=== PATIENT | female | born 1960 | race Caucasian/White ===

== ENCOUNTER 2020-10-09 10:41 | Inpatient (IN) | payer MEDICAID, SELFPAY ==
[~2020-10-09] VITALS: Ht 154.9 cm; Wt 90.7 kg
[2020-10-09 10:45] VITALS: BP_SYST 113
--- NOTE | 2020-10-09 10:49 | NUR ---
Patient to ER bed 2 to gown for evaluation. Side rails up.
--- NOTE | 2020-10-09 10:50 | NUR ---
Patient presented to ER C/O GI bleed. Patient BIB BLS to ER, afebrile, skin pink and warm, denies pain, denies N/V/D, cough, respirations equal bilat. Per EMS patient was sent from [facility] with with HGB 8.2 and blood in stool x2 days.
--- NOTE | 2020-10-09 10:51 | NUR ---
RIGHT AXILLA PICC, TRIPLE LUMEN
--- NOTE | 2020-10-09 11:01 | NUR ---
ER Dr. Montez at bedside examining patient.
--- NOTE | 2020-10-09 11:40 | NUR ---
Urine specimen collected and analyzed in ER. Results given to ER .
[2020-10-09 11:45] LABS: EOSINOPHILS # (AUTO) 0.4 K/uL (0.0-0.4); MEAN CORPUSCULAR HEMOGLOBIN 33 pg (27-31); MEAN CORPUSCULAR HGB CONC 34 % (32-36); WHITE BLOOD COUNT (AUTO) 9.1 K/uL (4.8-10.8)
[2020-10-09 11:48] LABS: BASOPHILS # (AUTO) 0.1 K/uL (0.0-0.2); BASOPHILS % (AUTO) 1.6 % (0.0-2.0); EOSINOPHILS % (AUTO) 4.2 % (0.0-4.0); LYMPHOCYTES # (AUTO) 1.2 K/uL (1.0-5.5); LYMPHOCYTES % (AUTO) 13.2 % (20.5-51.5); MEAN CORPUSCULAR VOLUME 96 fL (79.0-98.0); MONOCYTES % (AUTO) 11.2 % (1.7-9.3); NEUTROPHILS # (AUTO) 6.4 K/uL (1.8-7.7); NEUTROPHILS % (AUTO) 69.8 % (40.0-70.0); PLATELET COUNT (AUTO) 74 K/uL (130-430); RED CELL DISTRIBUTION WIDTH 20.2 % (9.0-15.0)
[2020-10-09 11:52] LABS: HEMOGLOBIN 7.9 g/dL (12.0-16.0)
[2020-10-09 11:59] LABS: INR 1.4 (0.8-1.2); PROTHROMBIN TIME 13.8 SECS (9.5-12.5)
[2020-10-09 12:06] LABS: ALBUMIN 1.9 g/dL (3.4-4.8); CALCIUM 8.7 mg/dL (8.4-11.0); CREATININE 0.95 mg/dL (0.55-1.30); TOTAL BILIRUBIN 8.8 mg/dL (0.0-1.0)
[2020-10-09 12:12] LABS: POTASSIUM 3.5 mmol/L (3.5-5.1)
--- NOTE | 2020-10-09 12:25 | NUR ---
Patient repositioned in [facility], PT A&Ox4
[2020-10-09 12:32] LABS: BILIRUBIN,URINE 1+ (NEGATIVE); CLARITY/URINE SL CLOUDY (CLEAR); COLOR,URINE ORANGE (YELLOW); GLUCOSE,URINE NEGATIVE (NEGATIVE); KETONES,URINE NEGATIVE (NEGATIVE); LEUKOCYTE ESTERASE ,URINE NEGATIVE (NEGATIVE); NITRITE, URINE POSITIVE (NEGATIVE); PROTEIN URINE NEGATIVE (NEGATIVE); UROBILINOGEN,URINE 0.2 (0.2-1.0)
[2020-10-09 12:46] LABS: BLOOD, URINE TRACE (NEGATIVE)
[2020-10-09 12:58] LABS: BACTERIA,URINE MODERATE /HPF (None Seen); WBC,URINE 0-3 /HPF (0-3)
[2020-10-09] MEDS ORDERED: LEVOFLOXACIN 500 MG/D5W 100 ML IV ONE (13:00)
[2020-10-09] MEDS: NACL 0.9% 1,000 ML IV SCH (13:30)
--- NOTE | 2020-10-09 13:40 | NUR ---
Orders received from Dr. Osborn. Made Pt aware of admission.
[2020-10-09] MEDS ORDERED: LORA10CA PO (13:46)
[2020-10-09] MEDS ORDERED: FOLI-43 PO (13:46)
[2020-10-09] MEDS ORDERED: FURO-149 PO (13:46)
[2020-10-09] MEDS ORDERED: THIA50TA10 PO (13:46)
[2020-10-09] MEDS ORDERED: LIP20 PO (13:46)
[2020-10-09] MEDS ORDERED: METO5TAB7 PO (13:46)
[2020-10-09] MEDS ORDERED: PANT20TA2 PO (13:46)
[2020-10-09] MEDS ORDERED: ASA81 PO (13:46)
--- NOTE | 2020-10-09 15:10 | NUR ---
Patient sitting up in [facility], repositioned. Patient A&Ox4.
--- NOTE | 2020-10-09 16:18 | NUR ---
aPatient will be admitted to care DR QUEEN. Admitted to TELE unit. Will go to room 116A. Belongings list completed. Complete and up to date summary report printed. SBAR report to be given at bedside with opportunity for questions.
--- NOTE | 2020-10-09 16:45 | NUR ---
CONSULTATION PAGED REASON FOR CONSULTATION:GI BLEED WAS CONSULT CALLED?Y PERSON WHO WAS NOTIFIED:MENDY CONSULTING PHYSICIAN:EFREN SOLER ( STOCKBROKER) BEAM WARPER SPECIALTY:GI BEAM WARPER PHONE NUMBER:[phone] ORDERING PHYSICIAN:MACI JEFF
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
[2020-10-09 17:00] VITALS: BP_SYST 117
--- NOTE | 2020-10-09 17:30 | NUR ---
REPORT Report obtained from ER nurse Mlaly. Hbd 8.2 Dx GI bleed, diverticulitis, GERD, Alcoholic cirrhosis, Diabetes. Lab called and stated Blood type is AB+ bu only have O- blood in house. Skin jaundice. PICC to R axilla. COVID neg 10/09.
[2020-10-09] MEDS: PIPERACILLIN/TAZO 3.375/DEX-IS 50 ML IV SCH (18:00)
[2020-10-09 19:00] VITALS: BP_SYST 123
[2020-10-10] MEDS: NACL 0.9% 1,000 ML IV SCH ×3 (00:38→18:54)
[2020-10-10 04:00] VITALS: BP_SYST 126
[2020-10-10] MEDS: PIPERACILLIN/TAZO 3.375/DEX-IS 50 ML IV SCH ×5 (06:00→23:35)
[2020-10-10 06:39] LABS: BASOPHILS # (AUTO) 0.1 K/uL (0.0-0.2); BASOPHILS % (AUTO) 1.3 % (0.0-2.0); EOSINOPHILS # (AUTO) 0.4 K/uL (0.0-0.4); EOSINOPHILS % (AUTO) 4.4 % (0.0-4.0); HEMATOCRIT 24.9 % (36-48); HEMOGLOBIN 8.5 g/dL (12.0-16.0); LYMPHOCYTES # (AUTO) 1.2 K/uL (1.0-5.5); LYMPHOCYTES % (AUTO) 14.8 % (20.5-51.5); MEAN CORPUSCULAR HEMOGLOBIN 32 pg (27-31); MEAN CORPUSCULAR HGB CONC 34 % (32-36); MEAN CORPUSCULAR VOLUME 94 fL (79.0-98.0); MONOCYTES # (AUTO) 0.8 K/uL (0.0-1.0); MONOCYTES % (AUTO) 10.2 % (1.7-9.3); NEUTROPHILS # (AUTO) 5.5 K/uL (1.8-7.7); NEUTROPHILS % (AUTO) 69.3 % (40.0-70.0); PLATELET COUNT (AUTO) 72 K/uL (130-430); RED BLOOD CELL COUNT(AUTO) 2.65 MIL/uL (4.2-6.2); RED CELL DISTRIBUTION WIDTH 20.7 % (9.0-15.0); WHITE BLOOD COUNT (AUTO) 7.9 K/uL (4.8-10.8)
[2020-10-10 07:01] LABS: ALBUMIN 1.8 g/dL (3.4-4.8); CALCIUM 8.3 mg/dL (8.4-11.0); CREATININE 0.95 mg/dL (0.55-1.30); POTASSIUM 3.3 mmol/L (3.5-5.1); TOTAL BILIRUBIN 7.7 mg/dL (0.0-1.0)
--- NOTE | 2020-10-10 07:03 | NUR ---
HANDOFF WITH AGNIESZKA Garces RN. FINESSE MELCHOR RN
[2020-10-10 08:00] VITALS: BP_SYST 129
--- NOTE | 2020-10-10 08:00 | NUR ---
A/Ox4. V/S stable. Instructed on Care plan. Call light in place, bed locked at the lowest position, will continue to monitor.
--- NOTE | 2020-10-10 09:49 | NUR ---
Case mgt: Rec'd call from pt's daughter Summer-She indicated pt was recently at [facility] for GI bleed, treated by Dr. Sykes for bleeding issues.Summer indicates pt has clotting disorder per her work-up at [facility] and required embolization of GI bleed. Pt usually lives at home w/disabled brother but went to SNF for short term PT-daughter agreeable to pt returning to [facility] and says pt seems a bit forgetful right now and requests MD to call daughter w/update--Nurse Tyler made aware--Summer's ph#[phone]. EULALIA RN
--- NOTE | 2020-10-10 11:11 | NUR ---
Nutrition Update Jesse Scale 14 noted. Pt admitted for GI bleed and UTI. Diet: NPO BMI: 37.8 kg/m2 RD to follow per nutrition care standards.
[2020-10-10 11:33] VITALS: BP_SYST 129
--- NOTE | 2020-10-10 12:30 | NUR ---
patient is taken to bathroom and back on a walker. tolerated without distress.
--- NOTE | 2020-10-10 14:57 | NUR ---
Patient is resting, no signs of distress noted.
[2020-10-10 15:29] VITALS: BP_SYST 124
[2020-10-10] MEDS ORDERED: POTASSIUM CHLORIDE 20 MEQ/PKT PACKET PO ONE (17:30)
[2020-10-10] MEDS ORDERED: POTASSIUM CHLORIDE 20 MEQ/PKT PACKET ONE (17:30)
--- NOTE | 2020-10-10 18:00 | NUR ---
DR. VALENTINO IS AT BEDSIDE. POC IS RELAYED TO THE PATIENT.
--- NOTE | 2020-10-10 19:15 | NUR ---
Report received from day shift nurse. Pt was received lying in bed fully awake, alert and oriented x4. Skin is warm and dry to touch. No signs or symptoms of hypoglycemia or hyperglycemia noted. No acute distress noted and no c/o pain or discomfort. IVF of NS is infusing well via LUCILLE PICC at 100ml/hr with PICC dressing dry and intact. Fall and safety precautions are in place.
[2020-10-10 20:00] VITALS: BP_SYST 126
[2020-10-10] MEDS: ATORVASTATIN 20 MG TABLET PO SCH (20:47)
--- NOTE | 2020-10-10 20:47 | NUR ---
Pt is resting quietly in bed. Scheduled HS medication given. IVF is infusing well. Fall and safety precautions are in place.
--- NOTE | 2020-10-10 23:35 | NUR ---
Pt is awake and resting quietly in bed. IVF is infusing well via LUCILLE. Call light is with pt and bed is in the lowest/locked positions. Bed alarm is on.
--- NOTE | 2020-10-11 01:40 | NUR ---
Pt is sleeping without any respiratory distress noted. IVF is infusing well in BLAD[place]IR. Fall and safety precautions are in place.
[2020-10-11 02:02] VITALS: BP_SYST 118
--- NOTE | 2020-10-11 03:05 | NUR ---
Pt was assisted with bedpan. Pt voided large amount of ramiro colored urine and temi care given.
--- NOTE | 2020-10-11 05:00 | NUR ---
Pt is resting quietly in bed. No c/o pain or discomfort. IVF is infusing well in LUCILLE. Fall and safety precautions are n place.
[2020-10-11] MEDS: NACL 0.9% 1,000 ML IV SCH ×2 (05:42→14:37)
[2020-10-11] MEDS: PIPERACILLIN/TAZO 3.375/DEX-IS 50 ML IV SCH ×4 (05:45→23:16)
[2020-10-11 06:44] LABS: BASOPHILS # (AUTO) 0.1 K/uL (0.0-0.2); BASOPHILS % (AUTO) 1.6 % (0.0-2.0); EOSINOPHILS # (AUTO) 0.4 K/uL (0.0-0.4); EOSINOPHILS % (AUTO) 4.9 % (0.0-4.0); HEMATOCRIT 24.6 % (36-48); HEMOGLOBIN 8.5 g/dL (12.0-16.0); LYMPHOCYTES % (AUTO) 13.2 % (20.5-51.5); MEAN CORPUSCULAR HEMOGLOBIN 33 pg (27-31); MEAN CORPUSCULAR HGB CONC 35 % (32-36); MEAN CORPUSCULAR VOLUME 94 fL (79.0-98.0); MONOCYTES # (AUTO) 0.8 K/uL (0.0-1.0); MONOCYTES % (AUTO) 10.8 % (1.7-9.3); NEUTROPHILS # (AUTO) 5.3 K/uL (1.8-7.7); NEUTROPHILS % (AUTO) 69.5 % (40.0-70.0); PLATELET COUNT (AUTO) 73 K/uL (130-430); RED BLOOD CELL COUNT(AUTO) 2.61 MIL/uL (4.2-6.2); RED CELL DISTRIBUTION WIDTH 22.4 % (9.0-15.0); WHITE BLOOD COUNT (AUTO) 7.6 K/uL (4.8-10.8)
--- NOTE | 2020-10-11 06:58 | NUR ---
Pt is awake and resting comfortably in bed. All pt's needs were attended to. IVF is infusing well in LUCILLE. Fall and safety precautions are in place. Will endorse to day shift nurse.
[2020-10-11 07:10] LABS: CREATININE 0.82 mg/dL (0.55-1.30); POTASSIUM 3.1 mmol/L (3.5-5.1)
--- NOTE | 2020-10-11 07:30 | NUR ---
OPENING NOTES: RECEIVED PATIENT FROM GEOSPATIAL ENGINEER NURSE. PATIENT IS AWAKE AND ALERT x4 LAYING DOWN IN BED. PATIENT DENIES ANY PAIN AT THE MOMENT. PICC LINE INTACT AND RUNNING FLUIDS ORDERED. PATIENT IN STABLE CONDITION. SAFETY, FALL, AND ASPIRATION PRECAUTIONS ARE IN PLACE. BED LOCKED IN LOWEST POSITION WITH CALL LIGHT IN REACH. WILL CONTINUE TO MONITOR PATIENT FOR ANY CHANGES.
[2020-10-11 08:03] VITALS: BP_SYST 130
[2020-10-11] MEDS: PANTOPRAZOLE SODIUM 40 MG/VIAL (PROTONIX) IVP SCH (08:27)
[2020-10-11] MEDS: metOLazone 5 MG TABLET PO SCH (08:27)
[2020-10-11] MEDS: FUROSEMIDE 40 MG TABLET PO SCH (08:27)
[2020-10-11] MEDS: LORATADINE 10 MG TABLET PO SCH (08:27)
[2020-10-11] MEDS: THIAMINE HCL 100 MG TABLET PO SCH (08:27)
[2020-10-11] MEDS: FOLIC ACID 1 MG TABLET PO SCH (08:27)
--- NOTE | 2020-10-11 10:20 | NUR ---
RN ROUNDS: PATIENT IS AWAKE AND ALERT x4 LAYING DOWN IN BED. PATIENT IS TOLERATING OXYGEN ON ROOM AIR WITH NO SIGNS OF DISTRESS OR SHORTNESS OF BREATH NOTED. IV SITE IS PATENT WITH NO SIGNS OF INFILTRATION NOTED AND RUNNING FLUIDS ORDERED. PATIENT DENIES ANY PAIN AT THE MOMENT. PATIENT IN STABLE CONDITION. WILL CONTINUE TO MONITOR PATIENT FOR ANY CHANGES.
[2020-10-11 12:03] VITALS: BP_SYST 131
--- NOTE | 2020-10-11 12:13 | NUR ---
RN ROUNDS: PATIENT IS ASLEEP LAYING DOWN IN BED. PATIENT IS TOLERATING OXYGEN ON ROOM AIR WITH NO SIGNS OF DISTRESS OR SHORTNESS OF BREATH NOTED. IV SITE IS PATENT WITH NO SIGNS OF INFILTRATION NOTED. PATIENT IS IN STABLE CONDITION. WILL CONTINUE TO MONITOR PATIENT FOR ANY CHANGES.
--- NOTE | 2020-10-11 14:25 | NUR ---
RN ROUNDS: PATIENT IS AWAKE AND ALERT x4 LAYING DOWN IN BED. PATIENT IS TOLERATING OXYGEN ON ROOM AIR WITH NO SIGNS OF DISTRESS OR SHORTNESS OF BREATH NOTED. PICC LINE INTACT WITH CLEAN, DRY DRESSING AND RUNNING FLUIDS ORDERED. PATIENT DENIES ANY PAIN AT THE MOMENT. PATIENT IN STABLE CONDITION. WILL CONTINUE TO MONITOR PATIENT FOR ANY CHANGES.
[2020-10-11] MEDS ORDERED: POTASSIUM CHLORIDE 20 MEQ TAB.PRT.SR PO ONE (15:30)
[2020-10-11 16:06] VITALS: BP_SYST 123
--- NOTE | 2020-10-11 16:45 | NUR ---
RN ROUNDS: PATIENT IS AWAKE AND ALERT x4 LAYING DOWN IN BED. PATIENT IS TOLERATING OXYGEN ON ROOM AIR WITH NO SIGNS OF DISTRESS OR SHORTNESS OF BREATH NOTED. PICC LINE INTACT WITH CLEAN, DRY DRESSING AND RUNNING FLUIDS ORDERED. PATIENT IN STABLE CONDITION. WILL CONTINUE TO MONITOR PATIENT FOR ANY CHANGES.
--- NOTE | 2020-10-11 18:38 | NUR ---
CLOSING NOTES: PATIENT IS AWAKE AND ALERT x4 LAYING DOWN IN BED. PATIENT DENIES ANY PAIN AT THE MOMENT. PATIENT IS TOLERATING OXYGEN ON ROOM AIR WITH NO SIGNS OF DISTRESS OR SHORTNESS OF BREATH NOTED. PICC LINE INTACT AND RUNNING FLUIDS ORDERED. PATIENT IN STABLE CONDITION. SAFETY, FALL, AND ASPIRATION PRECAUTIONS REMAINED IN PLACE THROUGHOUT THE SHIFT. BED LOCKED IN LOWEST POSITION WITH CALL LIGHT IN REACH. WILL ENDORSE PATIENT CARE TO ONCOMING ENVELOPE CUTTER NURSE.
--- NOTE | 2020-10-11 19:20 | NUR ---
Bedside report received from day shift nurse. Pt is lying in bed fully awake, alert and oriented x4. Skin is warm and dry to touch. No signs or symptoms of hypoglycemia or hyperglycemia noted. No acute distress noted and no c/o pain or discomfort. IVF of NS is infusing well via LUCILLE PICC at 100ml/hr with PICC dressing dry and intact. Fall and safety precautions are in place. Call light is with pt and bed alarm is on.
--- NOTE | 2020-10-11 20:30 | NUR ---
Pt assisted with use of bedpan. IVF is infusing well in [facility]. Fall and safety precautions are in place.
[2020-10-11] MEDS: ATORVASTATIN 20 MG TABLET PO SCH (21:46)
--- NOTE | 2020-10-11 21:46 | NUR ---
Scheduled HS medication given. No c/o pain or discomfort. IVF is infusing well via LUCILLE PICC. Fall and safety precautions are in place.
--- NOTE | 2020-10-11 23:16 | NUR ---
Scheduled IV Zosyn hung. Pt is resting comfortably in bed. Fall and safety precautions are in place.
[2020-10-12] VITALS: BP_SYST 130
--- NOTE | 2020-10-12 01:00 | NUR ---
Pt is sleeping without any respiratory distress noted. IVF is infusing well in LUCILLE. Fall and safety precautions are in place.
[2020-10-12] MEDS: NACL 0.9% 1,000 ML IV SCH ×2 (01:42→11:30)
--- NOTE | 2020-10-12 02:36 | NUR ---
Pt is sleeping comfortably in bed. IVF is infusing well in LUCILLE. Fall and safety precautions are in place.
--- NOTE | 2020-10-12 04:30 | NUR ---
Pt continues to sleep without any distress. IVF is infusing well in LUCILLE. Fall and safety precautions are in place.
[2020-10-12] MEDS: PIPERACILLIN/TAZO 3.375/DEX-IS 50 ML IV SCH ×2 (05:42→11:45)
[2020-10-12 06:56] LABS: BASOPHILS # (AUTO) 0.1 K/uL (0.0-0.2); BASOPHILS % (AUTO) 1.2 % (0.0-2.0); EOSINOPHILS # (AUTO) 0.4 K/uL (0.0-0.4); EOSINOPHILS % (AUTO) 4.9 % (0.0-4.0); HEMATOCRIT 25.7 % (36-48); HEMOGLOBIN 8.9 g/dL (12.0-16.0); LYMPHOCYTES # (AUTO) 1.1 K/uL (1.0-5.5); LYMPHOCYTES % (AUTO) 15.6 % (20.5-51.5); MEAN CORPUSCULAR HEMOGLOBIN 33 pg (27-31); MEAN CORPUSCULAR HGB CONC 35 % (32-36); MEAN CORPUSCULAR VOLUME 95 fL (79.0-98.0); MONOCYTES # (AUTO) 0.8 K/uL (0.0-1.0); MONOCYTES % (AUTO) 10.8 % (1.7-9.3); NEUTROPHILS # (AUTO) 4.9 K/uL (1.8-7.7); NEUTROPHILS % (AUTO) 67.5 % (40.0-70.0); PLATELET COUNT (AUTO) 71 K/uL (130-430); RED BLOOD CELL COUNT(AUTO) 2.71 MIL/uL (4.2-6.2); RED CELL DISTRIBUTION WIDTH 24.4 % (9.0-15.0); WHITE BLOOD COUNT (AUTO) 7.2 K/uL (4.8-10.8)
[2020-10-12 07:18] LABS: CREATININE 0.81 mg/dL (0.55-1.30); POTASSIUM 3.1 mmol/L (3.5-5.1)
[2020-10-12 08:00] VITALS: BP_SYST 121
--- NOTE | 2020-10-12 08:00 | NUR ---
Initial notes Awake, oriented. Denies any chest pain or shortness of breath. IVF infusing well. Update plan of care. Call light in reach. Will monitor.
[2020-10-12] MEDS: PANTOPRAZOLE SODIUM 40 MG/VIAL (PROTONIX) IVP SCH (08:42)
[2020-10-12] MEDS: LORATADINE 10 MG TABLET PO SCH (08:43)
[2020-10-12] MEDS: metOLazone 5 MG TABLET PO SCH (08:43)
[2020-10-12] MEDS: THIAMINE HCL 100 MG TABLET PO SCH (08:44)
[2020-10-12] MEDS: FUROSEMIDE 40 MG TABLET PO SCH (08:44)
[2020-10-12] MEDS: FOLIC ACID 1 MG TABLET PO SCH (08:44)
--- NOTE | 2020-10-12 12:00 | NUR ---
Notes Resting in bed, denies any pain or discomfort. on room air tolerated well.
[2020-10-12 12:03] VITALS: BP_SYST 112
--- NOTE | 2020-10-12 13:20 | NUR ---
WOUND EVALUATION: Wound Consult received from Dr. sOborn. Thank you, Dr. Osborn, for the consult. Patient received in a Bernadette Bed with an Atmos-Air 9000 mattress, awake, alert, and oriented. Patient is able to turn in bed independently. Jesse Score is an 18. Past Medical History: Diabetes Mellitus, Gastroesophageal Reflux, SHERON, Liver disease, chronic Pancreatitis, Gastrointestinal bleeding. Recent Labs: WBC 7.2, RBC 2.71, hemoglobin 8.9, hematocrit 25.7, potassium 3.1, BUN 10, creatinine 0.81, GFR 77, albumin 1.8, serum total protein 5.7, PT 13.8, INR 1.4. Microbiology: MRSA screen results negative. Urine culture results negative. Blood culture results x2 in progress. Intrinsic factors that delay wound healing: Diabetes Mellitus, severe Hypoalbuminemia. Extrinsic factors that delay wound healing: Decreased mobility. Wound Assessment: 1. Right Lateral Cervical Spine area, former IJ Central Line insertion site: Healing former IJ Central Line site, present on admission. Wound bed has 100% black scab. No odor, no drainage. Periwound intact. Wound measures 1.4 cm x 0.3 cm. Recommend: Cleanse site with normal saline. Pat dry. Apply Betadine to involved area. Allow Betadine to air dry. Cover with 4 x 4 foam dressing for protection. Perform site care daily, and as needed for dressing soiling or dislodgment. 2. Left Inguinal area, former Femoral Central Line insertion site: Healing former Femoral Central Line site, present on admission. Wound bed has 100% dark red tissue. No odor, no drainage. Periwound intact. Wound measures 0.5 cm x 0.5 cm. Recommend: Cleanse wound with normal saline. Apply moisture barrier cream to temi-wound. Apply Hydrogel to wound bed. Cover with foam dressing. Perform wound care daily, and as needed for dressing soiling or dislodgement. 3. Inguinal/perineal areas: Erythema from IAD, present on admission. Recommend: Cleanse involved area with mild soap and water. Pat dry. Apply moisture barrier cream to involved area. Perform site care 4 times daily as needed for soiling. 4. Left montiel: Two small black scabs, present on admission. No odor, no drainage. Periwound intact. Dry, stable. Recommend: No dressings needed. Continue monitor sites every shift. Also recommend: Encourage and assist patient as needed with repositioning every 2 hours with pillow support and off-load pressure areas with pillows for pressure re-distribution. Offload, elevate and float bilateral heels with pillows. Perform skin care and monitor skin integrity Q shift.
--- NOTE | 2020-10-12 13:25 | NUR ---
Left message for patient's daughter-pt is discharged back to [facility]- Daughter is Summer
--- NOTE | 2020-10-12 13:39 | NUR ---
Discharge Planning: [facility]ANP faxed pt referral to [facility] ([phone] DCP to follow up Addendum: 10/12/20 at 1519 by Evie Edmond DP DCP followed up with Vickie at [facility] ([phone])vpt will go to [facility], transportation arranged with [facility] ([phone]) 5:00pm BLS trip#[id number]. DCP took pt packet to nurse station.
--- NOTE | 2020-10-12 13:42 | NUR ---
Notes- Photos taken within 24 hours of discharge
[2020-10-12] MEDS ORDERED: POTASSIUM CHLORIDE 20 MEQ TAB.PRT.SR PO ONE (13:45)
[2020-10-12 14:23] VITALS: BP_SYST 120
--- NOTE | 2020-10-12 14:30 | NUR ---
Notes/family- Trying to reach patient's daughter but only voicemail. Patient's is oriented and told her no inform her daughter that she is going back to SNF.
--- NOTE | 2020-10-12 17:20 | NUR ---
report given to Jaydon at [facility].
--- NOTE | 2020-10-12 17:42 | NUR ---
discharge patient to [facility], awake and orinted .Denies any pain or discomfort. no acute distress noted. All belongings sent with patient. paperworks given to ambulance staff. leave right arm picc line.
== END 2020-10-12 17:45 | DRG 720 ==
LOC: SED 10:41 → STU 13:38 → SMU 16:20 → STU 16:21 → SMU 10-10 10:56
PROVIDERS: ADMIT Internal Medicine; ATTEND Internal Medicine
PROC: 30233N1 Transfusion of Nonautologous Red Blood Cells into Peripheral Vein, Percutaneous Approach (ICD-10-PCS; principal; 2020-10-09)
DX: A41.9 Sepsis, unspecified organism (principal); K62.5 Hemorrhage of anus and rectum; K57.90 Diverticulosis of intestine, part unspecified, without perforation or abscess without bleeding; N17.9 Acute kidney failure, unspecified; N39.0 Urinary tract infection, site not specified; K21.9 Gastro-esophageal reflux disease without esophagitis; E11.9 Type 2 diabetes mellitus without complications; K70.30 Alcoholic cirrhosis of liver without ascites; D68.9 Coagulation defect, unspecified; K64.9 Unspecified hemorrhoids; K31.89 Other diseases of stomach and duodenum; Z20.828 Contact with and (suspected) exposure to other viral communicable diseases; Z88.2 Allergy status to sulfonamides; Z79.82 Long term (current) use of aspirin; Z79.899 Other long term (current) drug therapy; E43 Unspecified severe protein-calorie malnutrition; R64 Cachexia
CPT/HCPCS: 36415; 36430; 71045; 80048; 80053; 81000-TC; 82140-TC; 82962; 83605; 84484; 85025; 85610-TC; 85730-TC; 86886; 86900; 86901; 86920; 87040-TC; 87081; 87086; 93005; 96365; 96366; 99285; C9113; G0378; J1956; J2543; P9021

== ENCOUNTER 2020-10-16 19:25 | Inpatient (IN) | payer MEDICAID, SELFPAY ==
[~2020-10-16] VITALS: Ht 154.9 cm; Wt 76.7 kg
[~2020-10-16 19:25] MED LIST: ASA81 PO; FOLI-43 PO; FURO-149 PO; LIP20 PO; LORA10CA PO; METO5TAB7 PO; PANT20TA2 PO; THIA50TA10 PO
--- NOTE | 2020-10-16 20:00 | NUR ---
ADMISSION: The patient, AYLA LONG, 60 y/o, F admitted by KAMLA QUEEN MD, was given written information regarding hospital policies, unit procedures and contact persons. Valuables were checked and logged.
[2020-10-16 20:53] VITALS: BP_SYST 118
--- NOTE | 2020-10-16 22:05 | NUR ---
STAT CONSULT FOR DR. DAVID GUZMÁN ORDERED BY DR. BERNICE HERNANDEZ IS TALKING TO HAYLEY EVANS AT THIS MOMENT
--- NOTE | 2020-10-16 22:16 | NUR ---
CONSULT: CONSULT CALLED FOR DR. CANDIS TORIBIO I SPOKE WITH MONICO EXCHAGE REASON FOR CONSULT: UTI REQUESTING CONSULT: DR. QUEEN BABY SITTER PHONE NUMBER: [phone]
--- NOTE | 2020-10-16 22:20 | NUR ---
DRESSING CHANGE REMOVED PT'S OLD DRESSING TO RIGHT NECK PER MD ORDER. APPLIED PRESSURE DIRECTLY TO OPEN WOUND FOR 15 MINUTES. CLEANSED AREA AND APPLIED CLEAN DRESSING WITH PRESSURE. WILL MONITOR.
[2020-10-16 22:45] LABS: BILIRUBIN,URINE NEGATIVE (NEGATIVE); BLOOD, URINE NEGATIVE (NEGATIVE); CLARITY/URINE CLEAR (CLEAR); COLOR,URINE YELLOW (YELLOW); GLUCOSE,URINE NEGATIVE (NEGATIVE); KETONES,URINE NEGATIVE (NEGATIVE); LEUKOCYTE ESTERASE ,URINE NEGATIVE (NEGATIVE); NITRITE, URINE NEGATIVE (NEGATIVE); PROTEIN URINE NEGATIVE (NEGATIVE); UROBILINOGEN,URINE 0.2 (0.2-1.0)
[2020-10-16 22:47] LABS: BASOPHILS # (AUTO) 0.1 K/uL (0.0-0.2); BASOPHILS % (AUTO) 0.8 % (0.0-2.0); EOSINOPHILS # (AUTO) 0.2 K/uL (0.0-0.4); EOSINOPHILS % (AUTO) 2.9 % (0.0-4.0); HEMOGLOBIN 7.4 g/dL (12.0-16.0); LYMPHOCYTES # (AUTO) 1.1 K/uL (1.0-5.5); LYMPHOCYTES % (AUTO) 17.3 % (20.5-51.5); MEAN CORPUSCULAR HEMOGLOBIN 33 pg (27-31); MEAN CORPUSCULAR HGB CONC 35 % (32-36); MEAN CORPUSCULAR VOLUME 95 fL (79.0-98.0); MONOCYTES # (AUTO) 0.8 K/uL (0.0-1.0); MONOCYTES % (AUTO) 11.9 % (1.7-9.3); NEUTROPHILS # (AUTO) 4.5 K/uL (1.8-7.7); NEUTROPHILS % (AUTO) 67.1 % (40.0-70.0); PLATELET COUNT (AUTO) 55 K/uL (130-430); RED BLOOD CELL COUNT(AUTO) 2.22 MIL/uL (4.2-6.2); RED CELL DISTRIBUTION WIDTH 24.9 % (9.0-15.0); WHITE BLOOD COUNT (AUTO) 6.6 K/uL (4.8-10.8)
[2020-10-16] MEDS ORDERED: ALBUTEROL SULFATE 0.083% 2.5 MG/3 ML VIAL.NEB INH PRN (23:00)
[2020-10-16] MEDS ORDERED: LIP20 PO (23:03)
[2020-10-16] MEDS ORDERED: ALBU2.5V7 INH (23:03)
[2020-10-16] MEDS ORDERED: FERR-69 PO (23:03)
[2020-10-16] MEDS ORDERED: LEVO750T45 PO (23:05)
[2020-10-16] MEDS ORDERED: FOLI-43 PO (23:05)
[2020-10-16] MEDS ORDERED: LORA10TA7 PO (23:06)
[2020-10-16] MEDS ORDERED: LISI-600 PO (23:06)
[2020-10-16] MEDS ORDERED: METO5TAB8 PO (23:08)
[2020-10-16] MEDS ORDERED: POTA20TA83 PO (23:09)
[2020-10-16] MEDS ORDERED: ASCO500T20 PO (23:09)
[2020-10-17] VITALS: BP_SYST 115
[2020-10-17 00:12] LABS: CREATININE 1.48 mg/dL (0.55-1.30)
[2020-10-17 00:17] LABS: ALBUMIN 1.7 g/dL (3.4-4.8); TOTAL BILIRUBIN 5.5 mg/dL (0.0-1.0)
[2020-10-17 00:18] LABS: INR 1.7 (0.8-1.2); PROTHROMBIN TIME 17.1 SECS (9.5-12.5)
[2020-10-17 00:23] LABS: POTASSIUM 2.9 mmol/L (3.5-5.1)
--- NOTE | 2020-10-17 00:27 | NUR ---
HIGH ALERT NOTE: Called Dr. Osborn back at [phone] identified within the medical roster to verify physician authenticity.
[2020-10-17] MEDS ORDERED: POTASSIUM CHLORIDE 20 MEQ/PKT PACKET PO ONE ×2 (00:30→01:00)
--- NOTE | 2020-10-17 01:15 | NUR ---
DRESSING CHANGE PT'S DRESSING NOTED TO BE SATURATED WITH BLOOD. DRESSING REMOVED. PRESSURE APPLIED FOR 15 MINUTES. AREA CLEANED AND NEW DRESSING APPLIED. PRESSURE WEIGHT SET ON THE RIGHT SIDE OF THE NECK TO KEEP CONTINUED PRESSURE. PT MADE COMFORTABLE. SAFETY MAINTAINED. WILL MONITOR.
--- NOTE | 2020-10-17 03:35 | NUR ---
BT INITIATION: Consent signed per patient agreeing to administration of blood. Blood has been type and crossmatched. Blood sent from blood bank. Information on unit of blood checked against patient wristband at bedside by two nurses. All information matches. Patient or responsible libertarian informed of potential complications associated with blood transfusion. Informed of possible transfusion reaction symptoms. Aware of need to notify nurse at once of itching, shortness of breath, flushing, feeling of impending doom, or other symptoms not previously present. Vital signs taken within 5 minutes prior to initiation of transfusion. RN will remain with patient for first 15 minutes of transfusion at which time vital signs will be re-assessed.
[2020-10-17 05:15] VITALS: BP_SYST 115
--- NOTE | 2020-10-17 05:32 | NUR ---
FIRST BLOOD TRANSFUSION COMPLETE NO S/S OF ADVERSE REACTION. VITALS WNL. PT TOLERATED WELL.
--- NOTE | 2020-10-17 05:47 | NUR ---
Second BT INITIATION: Consent signed per patient agreeing to administration of blood. Blood has been type and crossmatched. Blood sent from blood bank. Information on unit of blood checked against patient wristband at bedside by two nurses. All information matches. Patient or responsible green party informed of potential complications associated with blood transfusion. Informed of possible transfusion reaction symptoms. Aware of need to notify nurse at once of itching, shortness of breath, flushing, feeling of impending doom, or other symptoms not previously present. Vital signs taken within 5 minutes prior to initiation of transfusion. RN will remain with patient for first 15 minutes of transfusion at which time vital signs will be re-assessed.
--- NOTE | 2020-10-17 06:56 | NUR ---
CLOSING NOTE: ASSISTED PT TO USE BEDPAN, PT URINATED. PT CLEANED AND REPOSITIONED FOR COMFORT. PT DENIES FURTHER NEEDS. BLOOD IS TRANSFUSING TO RIGHT UPPER ARM PICC LINE, NO S/S OF ADVERSE REACTION NOTED. NO SOB OR RESPIRATORY DISTRESS. DRESSING TO RIGHT NECK HAS DRIED BLOOD BUT NO ACTIVE BLEEDING NOTED AT THIS ITME, WEIGHT REMAINS ON TOP OF RIGHT NECK AREA FOR PRESSURE. SAFETY MAINTAINED. WILL ENDORSE TO DAY SHIFT RN.
--- NOTE | 2020-10-17 07:25 | NUR ---
OPENING NOTE Patient resting in the bed. No acute distress. AAO x 4. Denied of pain. Skin warm and dry to touch. PICC line intact to LUCILLE, no redness, no swelling, no drainage, covered with clean and dry transparent dressing, blood transfusion infusing well at this time. Safety measure maintained. Call light within reached. Bed locked in low position, side rails up, bed alarm on Will continue to monitor.
[2020-10-17 07:55] VITALS: BP_SYST 118
--- NOTE | 2020-10-17 07:55 | NUR ---
BLOOD TRANSFUSION COMPLETED Patient resting in the bed. No acute distress. Blood transfusion completed. Skin warm and dry to touch, no skin rash noted. Denied of itching. Safety measure maintained. Call light within reached. Bed locked in low position, side rails up, bed alarm on. Continue to monitor.
--- NOTE | 2020-10-17 08:00 | NUR ---
SEEN AND EXAMINED BY RAMIREZ FREIRE. DR. HERNANDEZ CHANGED RIJ DRESSING AT BEDSIDE, NO ACTIVE BLEEDING NOTED AT THIS TIME. PER DR. HERNANDEZ TO HOLD ASPIRIN NOW.
[2020-10-17] MEDS ORDERED: ASPIRIN 81 MG TAB.CHEW PO SCH (09:00)
[2020-10-17] MEDS ORDERED: levoFLOXacin 750 MG TABLET PO SCH (09:00)
[2020-10-17] MEDS: lisinopriL 20 MG TABLET PO SCH (09:12)
[2020-10-17] MEDS: LORATADINE 10 MG TABLET PO SCH (09:12)
[2020-10-17] MEDS: metOLazone 5 MG TABLET PO SCH ×2 (09:12→20:29)
[2020-10-17] MEDS: FOLIC ACID 1 MG TABLET PO SCH (09:12)
[2020-10-17] MEDS: FERROUS SULFATE 325 MG TABLET.DR PO SCH (09:12)
[2020-10-17] MEDS: POTASSIUM CHLORIDE 20 MEQ TAB.PRT.SR PO SCH (09:12)
[2020-10-17] MEDS: ASCORBIC ACID 500 MG TABLET PO SCH ×2 (09:12→20:24)
[2020-10-17] MEDS: FUROSEMIDE 40 MG TABLET PO SCH (09:12)
[2020-10-17 09:18] LABS: BASOPHILS # (AUTO) 0.2 K/uL (0.0-0.2); EOSINOPHILS # (AUTO) 0.3 K/uL (0.0-0.4); EOSINOPHILS % (AUTO) 4.7 % (0.0-4.0); HEMATOCRIT 26.8 % (36-48); HEMOGLOBIN 9.4 g/dL (12.0-16.0); LYMPHOCYTES # (AUTO) 1.1 K/uL (1.0-5.5); LYMPHOCYTES % (AUTO) 16.6 % (20.5-51.5); MEAN CORPUSCULAR HEMOGLOBIN 32 pg (27-31); MEAN CORPUSCULAR HGB CONC 35 % (32-36); MEAN CORPUSCULAR VOLUME 91 fL (79.0-98.0); MONOCYTES # (AUTO) 0.7 K/uL (0.0-1.0); MONOCYTES % (AUTO) 10.4 % (1.7-9.3); NEUTROPHILS # (AUTO) 4.3 K/uL (1.8-7.7); NEUTROPHILS % (AUTO) 65.3 % (40.0-70.0); RED BLOOD CELL COUNT(AUTO) 2.93 MIL/uL (4.2-6.2); RED CELL DISTRIBUTION WIDTH 22.4 % (9.0-15.0); WHITE BLOOD COUNT (AUTO) 6.7 K/uL (4.8-10.8)
[2020-10-17 09:27] LABS: PLATELET COUNT (AUTO) 48 K/uL (130-430)
[2020-10-17 09:40] LABS: ALBUMIN 1.7 g/dL (3.4-4.8); CALCIUM 8.1 mg/dL (8.4-11.0); CREATININE 1.48 mg/dL (0.55-1.30); POTASSIUM 3.8 mmol/L (3.5-5.1); TOTAL BILIRUBIN 6.9 mg/dL (0.0-1.0)
--- NOTE | 2020-10-17 09:40 | NUR ---
CRITICAL LAB: PLATELET=48; CLARIFICATION ORDER OF LEVAQUIN, DC ASPIRIN Called Eros Phillips, reported patient's platelet=48 with order of Jannet Cochran consult. Obtained clarification order of Levaquin, not BID change to daily. Reoprted to Dr. Osborn, Dr. Stovall saw the patient this morning and changed dressing, no active bleeding noted on RIJ at this time. Dr. Osborn with order to DC Aspirin. All orders read back and ok to Dr. Osborn.
--- NOTE | 2020-10-17 10:09 | NUR ---
CONSULTATION PAGED/CALLED Reason for Consultation: [] LOW PLATELET Person Who was Notified: [] DK Consulting Physician: [] DR FELICIANO Thermodynamic Physicist Specialty: [] ONCO/JOHNATHAN Ordering Physician: [] DR QUEEN
--- NOTE | 2020-10-17 10:35 | NUR ---
BEDPAN Assisted to use bedpan, void freely, no hematuria/dysuria noted. Regular BM noted. Good perineal and perirectal care provided. Safety measure maintained. Call light within reached. Bed locked in low position, side rails up, bed alarm on. Continue to monitor.
--- NOTE | 2020-10-17 11:04 | NUR ---
Nutrition Update Jesse Scale 18 noted. Pt admitted for severe anemia. Diet: mechanical soft, 2 gm Na BMI: 31.9 kg/m2 RD to follow per nutrition care standards.
[2020-10-17] MEDS: levoFLOXacin 500 MG TABLET PO SCH (11:13)
[2020-10-17 12:00] VITALS: BP_SYST 112
--- NOTE | 2020-10-17 12:50 | NUR ---
BEDPAN Assisted to use bedpan, void freely, no hematuria/dysuria noted. Good perineal care provided. No active bleeding noted on RIJ. Dressing intact, clean and dry. Safety measure maintained. Call light within reached. Bed locked in low position, side rails up, bed alarm on. Continue to monitor.
--- NOTE | 2020-10-17 14:48 | NUR ---
SEEN AND EXAMINED BY DR. BERNICE NOGUEIRA.
[2020-10-17 15:41] VITALS: BP_SYST 125
--- NOTE | 2020-10-17 17:58 | NUR ---
PICC LINE DRESSING CHANGED BY USING ASEPTIC TECHNIQUE. PATIENT TOLERATED PROCEDURE WELL.
--- NOTE | 2020-10-17 18:56 | NUR ---
CLOSING NOTE Patient resting in the bed. No acute distress. Denied of pain. Skin warm and dry to touch. PICC line intact to LUCILLE, no redness, no swelling, no drainage, covered with clean and dry transparent dressing. RIJ site intact with clean and dry dressing, no active bleeding noted during shift. All needs met. Safety measure maintained. Call light within reached. Bed locked in low position, side rails up, bed alarm on. Will endorse to night nurse.
--- NOTE | 2020-10-17 19:33 | NUR ---
OPENING NOTES Received pt AAOx4, lying in bed. Pt on LUCILLE PICC and saline locked. No complains of pain and no signs of acute distress or SOB noted. Safety precautions in place with 3 side rails up, wheels locked , bed alarm on and in lowest level. Call light with pt. Will continue to monitor.
[2020-10-17] MEDS ORDERED: PHYTONADIONE 10 MG in NS 50 ML IV ONE (20:00)
[2020-10-17] MEDS ORDERED: PHYTONADIONE 10 MG/ML AMP ONE (20:09)
[2020-10-17 20:18] VITALS: BP_SYST 110
[2020-10-17] MEDS: ATORVASTATIN 20 MG TABLET PO SCH (20:24)
--- NOTE | 2020-10-17 20:30 | NUR ---
MED PASS All due meds given and pt tolerated well. No complains of pain and discomfort at this time. No bleeding noted on IJ site. No signs of acute distress or SOB noted. Encouraged to use call light when needed. Safety precautions in place and call light with pt. Will continue to monitor.
--- NOTE | 2020-10-17 23:45 | NUR ---
ROUNDS Assisted pt with bedpan and pt tolerated well. No complains of pain and no signs of acute distress noted. Safety precautions in place and call light with pt. Will continue to monitor.
[2020-10-18] VITALS: BP_SYST 100
--- NOTE | 2020-10-18 03:04 | NUR ---
ROUNDS Pt is resting in bed with both eyes closed, with visible chest rise and fall with non-labored breathing noted. No complains of pain and no signs of acute distress noted. No needs at this time. Safety precautions in place and call light with pt. Will continue to monitor.
--- NOTE | 2020-10-18 06:21 | NUR ---
CLOSING NOTES Pt is resting in bed with both eyes closed, with visible chest rise and fall with non-labored breathing noted. No complains of pain or discomfort and no signs of acute distress noted. No bleeding noted on IJ site. All needs attended throughout the shift. Safety precautions maintained with 3 side rails up, bed alarm on and in lowest level. Call light with pt. Will endorse to day shift nurse.
[2020-10-18 07:02] LABS: BASOPHILS # (AUTO) 0.1 K/uL (0.0-0.2); BASOPHILS % (AUTO) 1.1 % (0.0-2.0); EOSINOPHILS # (AUTO) 0.2 K/uL (0.0-0.4); EOSINOPHILS % (AUTO) 3.8 % (0.0-4.0); HEMATOCRIT 24.6 % (36-48); HEMOGLOBIN 8.7 g/dL (12.0-16.0); LYMPHOCYTES # (AUTO) 1.1 K/uL (1.0-5.5); LYMPHOCYTES % (AUTO) 18.8 % (20.5-51.5); MEAN CORPUSCULAR HEMOGLOBIN 32 pg (27-31); MEAN CORPUSCULAR HGB CONC 35 % (32-36); MEAN CORPUSCULAR VOLUME 91 fL (79.0-98.0); MONOCYTES # (AUTO) 0.6 K/uL (0.0-1.0); MONOCYTES % (AUTO) 10.4 % (1.7-9.3); NEUTROPHILS % (AUTO) 65.9 % (40.0-70.0); RETICULOCYTE COUNT 1.1 % (0.5-1.5)
[2020-10-18 07:16] LABS: TOTAL IRON BIND. CAPACITY 69 ug/dL (250-450)
[2020-10-18 07:21] LABS: INR 1.6 (0.8-1.2); PROTHROMBIN TIME 16.7 SECS (9.5-12.5)
--- NOTE | 2020-10-18 07:25 | NUR ---
OPENING NOTE Patient resting in the bed. No acute distress. AAO x 4. Denied of pain at this time. Skin warm and dry to touch. PICC line intact to LUCILLE, no redness, no swelling, patent. Discussed the safety issue, use call light when needs help, and plan of care, verbally understanding. Safety measure maintained. Call light within reached. Bed locked in low position, side rails up, bed alarm on. Will continue to monitor.
--- NOTE | 2020-10-18 07:33 | NUR ---
SEEN AND EXAMINED BY RAMIREZ FREIRE. CHECKED RIJ SITE WITH NO ACTIVE BLEEDING, DRESSING INTACT CLEAN AND DRY.
[2020-10-18 07:40] VITALS: BP_SYST 108
[2020-10-18 08:35] LABS: PLATELET COUNT (AUTO) 43 K/uL (130-430)
--- NOTE | 2020-10-18 08:40 | NUR ---
PAGED PAGED CESAR ARELLANO AT [phone] SPOKE WITH SOPHIA.
[2020-10-18] MEDS: FERROUS SULFATE 325 MG TABLET.DR PO SCH (09:05)
[2020-10-18] MEDS: POTASSIUM CHLORIDE 20 MEQ TAB.PRT.SR PO SCH (09:05)
[2020-10-18] MEDS: LORATADINE 10 MG TABLET PO SCH (09:05)
[2020-10-18] MEDS: FUROSEMIDE 40 MG TABLET PO SCH (09:05)
[2020-10-18] MEDS: FOLIC ACID 1 MG TABLET PO SCH (09:05)
[2020-10-18] MEDS: metOLazone 5 MG TABLET PO SCH ×2 (09:06→20:54)
[2020-10-18] MEDS: ASCORBIC ACID 500 MG TABLET PO SCH ×2 (09:06→20:54)
[2020-10-18] MEDS: lisinopriL 20 MG TABLET PO SCH (09:06)
--- NOTE | 2020-10-18 09:08 | NUR ---
AM PO SCHEDULE MED GIVEN. PATIENT TOLERATED WELL.
--- NOTE | 2020-10-18 10:10 | NUR ---
THE SECOND CALL FOR CESAR ARORA FOR CRITICAL LAB: PLATELET=43. WAITED TO CALL BACK.
[2020-10-18] MEDS: levoFLOXacin 500 MG TABLET PO SCH (11:08)
--- NOTE | 2020-10-18 11:10 | NUR ---
SEEN AND EXAMINED BY DR. BERNICE RUDOLPH.
[2020-10-18 11:25] VITALS: BP_SYST 110
--- NOTE | 2020-10-18 11:25 | NUR ---
ROUND Patient resting in the bed. No acute distress. RIJ intact with clean and dry dressing. No active bleeding noted. Safety measure maintained. Call light within reached. Bed locked in low position, side rails up, bed alarm on. Continue to monitor.
--- NOTE | 2020-10-18 13:00 | NUR ---
DR. FELICIANO IN THE UNIT, REPORTED PATIENTS PLATELET=43 TODAY.
--- NOTE | 2020-10-18 13:21 | NUR ---
SEEN AND EXAMINED BY CESAR ARORA WITH ORDER RECEIVED.
[2020-10-18] MEDS ORDERED: PHYTONADIONE 10 MG in NS 50 ML IV ONE (14:00)
--- NOTE | 2020-10-18 14:55 | NUR ---
US ABDOMEN DONE AT BEDSIDE. PATIENT TOLERATED PROCEDURE WELL.
[2020-10-18 16:04] VITALS: BP_SYST 120
--- NOTE | 2020-10-18 16:33 | NUR ---
ROUND Patient resting in the bed and talking to phone. Noted RIJ site with scant bleeding. Pressure dressing applied. Will continue to monitor.
--- NOTE | 2020-10-18 18:52 | NUR ---
CLOSING NOTE Patient resting in the bed. No acute distress. Denied of pain. Skin warm and dry to touch. PICC line intact to LUCILLE, no redness, no swelling, no drainage, covered with clean and dry transparent dressing. RIJ site intact with clean and dry dressing, no active bleeding noted at this time. All needs met. Safety measure maintained. Call light within reached. Bed locked in low position, side rails up, bed alarm on. Will endorse to night nurse.
--- NOTE | 2020-10-18 19:30 | NUR ---
INITIAL NOTE: PATIENT IS IN BED, RESTING. NO ACUTE DISTRESS. EVEN, NONLABORED BREATHING ON ROOM AIR. LUCILLE PICC LINE C/D/I. BED IS LOCKED AT LOWEST POSITION. SIDE RAILS UP. BED ALARM ON. CALL LIGHT IS WITH PATIENT. SAFETY AND FALL PRECAUTIONS IN PLACE. WILL CONTINUE WITH PLAN OF CARE. Addendum: 10/19/20 at 0646 by Brie Jacob RN RECEIVED REPORT FROM ED HARDY. DRESSING CHANGE PERFORMED AT THIS TIME ON OLD IJ INSERTION SIDE PER MD ORDER. PATIENT TOLERATED WELL.
[2020-10-18 20:00] VITALS: BP_SYST 118
[2020-10-18] MEDS: ATORVASTATIN 20 MG TABLET PO SCH (20:54)
--- NOTE | 2020-10-18 23:30 | NUR ---
ROUNDS: PATIENT IS SLEEPING IN BED. NO ACUTE DISTRESS. BREATHING IS EVEN, NONLABORED. CALL LIGHT IS WITH PATIENT. SAFETY AND FALL PRECAUTIONS IN PLACE. WILL CONTINUE MONITORING.
[2020-10-19] VITALS: BP_SYST 111
--- NOTE | 2020-10-19 03:00 | NUR ---
ROUNDS: PATIENT IS SLEEPING IN BED. NO ACUTE DISTRESS. BREATHING IS EVEN AND UNLABORED. CALL LIGHT IS WITH PATIENT. SAFETY AND FALL PRECAUTIONS IN PLACE. WILL CONTINUE MONITORING.
[2020-10-19 06:42] LABS: BASOPHILS % (AUTO) 0.9 % (0.0-2.0); EOSINOPHILS # (AUTO) 0.2 K/uL (0.0-0.4); EOSINOPHILS % (AUTO) 3.3 % (0.0-4.0); HEMATOCRIT 24.7 % (36-48); HEMOGLOBIN 8.7 g/dL (12.0-16.0); LYMPHOCYTES # (AUTO) 1.2 K/uL (1.0-5.5); LYMPHOCYTES % (AUTO) 20.7 % (20.5-51.5); MEAN CORPUSCULAR HEMOGLOBIN 32 pg (27-31); MEAN CORPUSCULAR HGB CONC 35 % (32-36); MEAN CORPUSCULAR VOLUME 92 fL (79.0-98.0); MONOCYTES # (AUTO) 0.7 K/uL (0.0-1.0); MONOCYTES % (AUTO) 11.5 % (1.7-9.3); NEUTROPHILS # (AUTO) 3.6 K/uL (1.8-7.7); NEUTROPHILS % (AUTO) 63.6 % (40.0-70.0); RED BLOOD CELL COUNT(AUTO) 2.68 MIL/uL (4.2-6.2); RED CELL DISTRIBUTION WIDTH 22.1 % (9.0-15.0); WHITE BLOOD COUNT (AUTO) 5.7 K/uL (4.8-10.8)
--- NOTE | 2020-10-19 06:43 | NUR ---
CLOSING NOTES: PATIENT IS IN BED, RESTING. NO ACUTE DISTRESS. EVEN, NONLABORED BREATHING ON ROOM AIR. LUCILLE PICC LINE C/D/I. ALL NEEDS MET. BED IS LOCKED AT LOWEST POSITION. SIDE RAILS UP. BED ALARM ON. CALL LIGHT IS WITH PATIENT. SAFETY AND FALL PRECAUTIONS IN PLACE. WILL ENDORSE TO DAYSHIFT RN.
[2020-10-19 07:04] LABS: INR 1.6 (0.8-1.2); PROTHROMBIN TIME 15.9 SECS (9.5-12.5)
--- NOTE | 2020-10-19 08:00 | NUR ---
Opening Notes Patient is awake, alert and oriented x4. No resp distress noted. Breathing is even and unlabored. Pt denies any pain at this time. Patient is noted with a PICC line on LUCILLE, triple lumen, flushing well at this time. Dressing is clean and dry, no signs of edema. Pt is noted with a dressing on right upper neck, noted with some bleeding. Nurse applied pressure to area to control bleeding, applied new dressing to area, applied weight as well. Pt is eating breakfast at this time. All needs met. Safety and fall precautions in place. Bed in lowest position, alarm on, locked. Will continue to monitor.
[2020-10-19 08:08] LABS: FOLATE (FOLIC ACID) >20.0 ng/mL (>3.0)
[2020-10-19 08:34] LABS: FERRITIN 1938 ng/mL (15-150)
[2020-10-19 08:39] LABS: PLATELET COUNT (AUTO) 40 K/uL (130-430)
--- NOTE | 2020-10-19 08:40 | NUR ---
Critical Labs: Hgb, Hct and Platelets Received critical lab: Hgb: 8.7, Hct 24.7, Platelets 40. Will page Dr. Dias for critical labs.
--- NOTE | 2020-10-19 08:46 | NUR ---
ONCO/HEMATOLOGY MD DR FELICIANO WAS CALLED, RE: CRITICAL H AND H LEVELS. SPOKE TO KATHE.
[2020-10-19] MEDS: LORATADINE 10 MG TABLET PO SCH (09:33)
[2020-10-19] MEDS: levoFLOXacin 500 MG TABLET PO SCH (09:33)
[2020-10-19] MEDS: lisinopriL 20 MG TABLET PO SCH (09:34)
[2020-10-19] MEDS: FERROUS SULFATE 325 MG TABLET.DR PO SCH (09:34)
[2020-10-19] MEDS: POTASSIUM CHLORIDE 20 MEQ TAB.PRT.SR PO SCH (09:34)
[2020-10-19] MEDS: FOLIC ACID 1 MG TABLET PO SCH (09:34)
[2020-10-19] MEDS: FUROSEMIDE 40 MG TABLET PO SCH (09:34)
[2020-10-19] MEDS: ASCORBIC ACID 500 MG TABLET PO SCH ×2 (09:35→21:00)
[2020-10-19] MEDS: metOLazone 5 MG TABLET PO SCH ×2 (09:35→21:01)
--- NOTE | 2020-10-19 10:05 | NUR ---
Notes/neck bleeding, dressing changed Patient is noted with bleeding on the right upper neck, dressing is saturated. Nurse applied pressure to site, controlled bleeding at this time. Cleanse with NS, pat dry applied dressing and applied gauze onto site. Pt denies any pain at this time. Will continue to monitor site throughout shift.
[2020-10-19] MEDS ORDERED: FOLIC ACID 1 MG TABLET PO ONE (11:00)
[2020-10-19] MEDS ORDERED: methylPREDNISolone SOD SUCC/PF 62.5 MG/ML VIAL IVP ONE (11:00)
[2020-10-19 11:27] VITALS: BP_SYST 104
--- NOTE | 2020-10-19 12:15 | NUR ---
Notes Patient is eating lunch at this time. No resp distress noted. Breathing is even and unlabored. Denies any pain at this time. Elevated both bilateral extremities. No needs at this time. Will continue to monitor.
[2020-10-19 15:32] VITALS: BP_SYST 111
--- NOTE | 2020-10-19 16:20 | NUR ---
Notes Patient is laying in bed, sleeping at this time. No resp distress noted. Breathing is even and unlabored. Denies any pain at this time. Will continue to monitor.
[2020-10-19] MEDS: methylPREDNISolone SOD SUCC/PF 62.5 MG/ML VIAL IVP SCH ×2 (17:57→23:43)
--- NOTE | 2020-10-19 18:31 | NUR ---
Closing Notes Patient is awake, alert and oriented x4. No resp distress noted. Breathing is even and unlabored. Denies any pain at this time but reports discomfort in her bilateral legs. Pt is requesting some pain medication before bedtime, will page Dr. Osborn. IJ site was cleaned, new dressing applied, no bleeding noted. PICC line on LUCILLE, triple lumen, intact at this time. Flushing well. Pt is eating dinner at this time. All needs met. Safety and fall precautions in place. Bed in lowest position, alarm on, locked. Will continue to monitor.
--- NOTE | 2020-10-19 19:49 | NUR ---
Initial note: Received report from chet RN. Patient is awake, watching TV. No acute distress, even and unlabored respirations on room air. LUCILLE PICC saline locked, dressing c/d/i. Right neck dressing with sandbag weight noted, dressing present with minimal amount of blood. Call light with patient. Safety, fall precautions in place. Will continue with plan of care.
[2020-10-19 20:00] VITALS: BP_SYST 115
[2020-10-19] MEDS: ATORVASTATIN 20 MG TABLET PO SCH (21:00)
--- NOTE | 2020-10-19 21:45 | NUR ---
Dressing change: Right neck dressing completely saturated with blood. Dressing change done, patient tolerated well. Weight placed back on top of dressing. Call light with patient. Will continue monitoring.
[2020-10-20] VITALS: BP_SYST 117
[2020-10-20] MEDS: MORPHINE 2 MG/ML INJ. SYRINGE IVP PRN
--- NOTE | 2020-10-20 00:06 | NUR ---
Pain: Patient complaining of severe bilateral knee and right neck pain. Spoke with Dr. Osborn over phone to update regarding current patient condition. Order received for Morphine 1 MG IVP Q4H PRN for severe pain. Verified by read-back, input by RN. Medication administered per MD order. No adverse effects noted. Call light with patient. Will continue monitoring.
[2020-10-20] MEDS: methylPREDNISolone SOD SUCC/PF 62.5 MG/ML VIAL IVP SCH (05:11)
--- NOTE | 2020-10-20 05:33 | NUR ---
Dressing change: Right neck dressing moderately saturated with blood. Dressing change done, patient tolerated well. Weight placed back on top of dressing. Call light with patient. Will continue monitoring.
[2020-10-20 06:37] LABS: BASOPHILS % (AUTO) 0.1 % (0.0-2.0); LYMPHOCYTES # (AUTO) 0.3 K/uL (1.0-5.5); LYMPHOCYTES % (AUTO) 10.3 % (20.5-51.5); MEAN CORPUSCULAR HEMOGLOBIN 33 pg (27-31); MEAN CORPUSCULAR HGB CONC 35 % (32-36); MEAN CORPUSCULAR VOLUME 92 fL (79.0-98.0); MONOCYTES # (AUTO) 0.1 K/uL (0.0-1.0); MONOCYTES % (AUTO) 2.4 % (1.7-9.3); NEUTROPHILS # (AUTO) 2.9 K/uL (1.8-7.7); NEUTROPHILS % (AUTO) 87.2 % (40.0-70.0); RED BLOOD CELL COUNT(AUTO) 2.72 MIL/uL (4.2-6.2); RED CELL DISTRIBUTION WIDTH 22.2 % (9.0-15.0); WHITE BLOOD COUNT (AUTO) 3.3 K/uL (4.8-10.8)
--- NOTE | 2020-10-20 06:40 | NUR ---
Closing note: Patient is asleep in bed, no acute distress. Tolerating room air, even and unlabored breathing. LUCILLE PICC saline locked, c/d/i. Right neck dressing present with sandbag weight in place. All needs met. Safety, fall precautions in place. Will endorse care to dayshift RN.
[2020-10-20 07:47] LABS: PLATELET COUNT (AUTO) 36 K/uL (130-430)
[2020-10-20 07:49] LABS: HEMATOCRIT 25.1 % (36-48); HEMOGLOBIN 8.9 g/dL (12.0-16.0)
--- NOTE | 2020-10-20 07:56 | NUR ---
PAGED PAGED CESAR ARELLANO AT [phone] SPOKE WITH PA,
--- NOTE | 2020-10-20 08:00 | NUR ---
Opening Notes Patient is awake, alert and oriented x4. No resp distress noted. Breathing is even and unlabored. Pt denies any pain at this time. PICC line on right upper arm, noted, dressing is clean and dry. Triple lumen, flushing well at this time. Pt denies any NVD, cough at this time. Pt is still noted with intermittent bleeding on right upper neck. Will monitor throughout shift. Breakfast is at bedside, patient is able to eat independently. All needs met at this time. Safety and fall precautions in place. Bed in lowest position, alarm on, locked. Will continue to monitor.
[2020-10-20 08:03] VITALS: BP_SYST 118
--- NOTE | 2020-10-20 09:07 | NUR ---
2ND PAGE OUT TO PAGECESAR KRAMER AT [phone] SPOKE WITH NALDO.
[2020-10-20] MEDS: LORATADINE 10 MG TABLET PO SCH (09:10)
[2020-10-20] MEDS: FERROUS SULFATE 325 MG TABLET.DR PO SCH (09:10)
[2020-10-20] MEDS: metOLazone 5 MG TABLET PO SCH ×2 (09:11→21:40)
[2020-10-20] MEDS: levoFLOXacin 500 MG TABLET PO SCH (09:11)
[2020-10-20] MEDS: ASCORBIC ACID 500 MG TABLET PO SCH ×2 (09:11→21:40)
[2020-10-20] MEDS: FOLIC ACID 1 MG TABLET PO SCH (09:12)
[2020-10-20] MEDS: FUROSEMIDE 40 MG TABLET PO SCH (09:12)
[2020-10-20] MEDS: POTASSIUM CHLORIDE 20 MEQ TAB.PRT.SR PO SCH (09:12)
[2020-10-20] MEDS: lisinopriL 20 MG TABLET PO SCH (09:13)
--- NOTE | 2020-10-20 10:39 | NUR ---
Notes Patient is sleeping at this time. No resp distress noted. Breathing is even and unlabored. Dressing on right upper neck is saturated, will change dressing later when patient is awake. No active bleeding noted. Will continue to monitor.
[2020-10-20 11:22] VITALS: BP_SYST 108
--- NOTE | 2020-10-20 12:00 | NUR ---
Notes Patient is resting in bed at this time. IJ site on right upper neck is bleeding. Dressing is saturated. Applied pressure to site, bleeding controlled. Changed dressing and applied weight to area, tolerated well. Skin around wound on right upper neck is noted with bruising, redness and is tender. Patient c/o pain when touched on neck air. Does not want pain meds at this time. No resp distress noted. All needs met. Will continue to monitor.
[2020-10-20 12:47] VITALS: BP_SYST 108
--- NOTE | 2020-10-20 14:15 | NUR ---
Notes Patient is laying in bed, resting at this time. Dressing is saturated. Wound is actively bleeding. Nurse applied pressure to wound area. Still ntoed with bleeding after 15 minutes of applied pressure. Charge nurse assisted with wound care. Applied more pressure and new dressing. Applied a 5 pound weight to site area. Bleeding controlled for now. Pt denies any pain at this time. Will continue to monitor.
[2020-10-20 15:22] VITALS: BP_SYST 99
--- NOTE | 2020-10-20 16:15 | NUR ---
Patient is being seen and examined by DR. HERNANDEZ
--- NOTE | 2020-10-20 16:30 | NUR ---
ONE STITCH TO RIGHT UPPER NECK Dr. Stovall applied one stitch to open wound (old IJ site). Tolerated well. patient is c/o 5/10 pain level, asking for pain medication after dinner. Bleeding is controlled at site. Will continue to monitor.
--- NOTE | 2020-10-20 16:30 | NUR ---
Patient is being seen and examined by DR. FELICIANO
[2020-10-20] MEDS ORDERED: methylPREDNISolone SOD SUCC/PF 62.5 MG/ML VIAL IVP ONE (16:45)
[2020-10-20] MEDS ORDERED: PHYTONADIONE 10 MG in NS 50 ML IV ONE (17:00)
[2020-10-20] MEDS ORDERED: PHYTONADIONE 10 MG/ML AMP ONE (17:39)
--- NOTE | 2020-10-20 19:02 | NUR ---
Closing Notes Patient is awake, alert and oriented x4. No resp distress noted. Breathing is even and unlabored. Denies any pain at this time but reports discomfort in her bilateral legs. IJ site is noted with no active bleeding at this time, dressing intact at this time. No PICC line on LUCILLE, triple lumen, intact at this time. Flushing well. Pt is eating dinner at this time. All needs met. Safety and fall precautions in place. Bed in lowest position, alarm on, locked. Will continue to monitor.
--- NOTE | 2020-10-20 19:30 | NUR ---
Opening notes Received report. Patient is resting in bed, no signs of distress noted. Breathing even and unlabored on room air. Hygiene care provided. Patient tolerated well. RIJ dressing intact, old drainage noted. Will continue to monitor. Pressure applied. PICC line in place, no signs of infiltration noted. No other needs. Call light with the patient. Safety precautions in place.
[2020-10-20 20:00] VITALS: BP_SYST 113
[2020-10-20] MEDS: ATORVASTATIN 20 MG TABLET PO SCH (21:40)
--- NOTE | 2020-10-20 21:40 | NUR ---
Medications given. Educated the action and side effects of Vitamin C. Patient verbalized understanding and tolerated well. Provided patient with juice. No other needs. Call light with the patient. Safety precautions in place.
[2020-10-21] VITALS (9 sets, daily range): BP systolic 101–115
--- NOTE | 2020-10-21 00:45 | NUR ---
RN rounds Patient resting in bed, no signs of distress noted. Breathing even and unlabored on room air. Juice provided per patient request. No other needs. Call light with the patient. Safety precautions in place.
[2020-10-21] MEDS ORDERED: methylPREDNISolone SOD SUCC/PF 62.5 MG/ML VIAL ONE ×2 (01:00→05:22)
[2020-10-21] MEDS: methylPREDNISolone SOD SUCC/PF 62.5 MG/ML VIAL IVP SCH ×2 (01:02→06:40)
--- NOTE | 2020-10-21 04:41 | NUR ---
RN rounds Patient is sleeping. No signs of distress noted. Breathing even and unlabored on room air. No needs at this time. Call light with the patient. Safety precautions in place.
[2020-10-21 06:42] LABS: BASOPHILS % (AUTO) 0.6 % (0.0-2.0); HEMATOCRIT 23.1 % (36-48); LYMPHOCYTES # (AUTO) 0.4 K/uL (1.0-5.5); LYMPHOCYTES % (AUTO) 6.6 % (20.5-51.5); MEAN CORPUSCULAR HEMOGLOBIN 32 pg (27-31); MEAN CORPUSCULAR HGB CONC 35 % (32-36); MEAN CORPUSCULAR VOLUME 92 fL (79.0-98.0); MONOCYTES # (AUTO) 0.4 K/uL (0.0-1.0); MONOCYTES % (AUTO) 5.9 % (1.7-9.3); NEUTROPHILS # (AUTO) 5.3 K/uL (1.8-7.7); NEUTROPHILS % (AUTO) 86.9 % (40.0-70.0); RED BLOOD CELL COUNT(AUTO) 2.51 MIL/uL (4.2-6.2); RED CELL DISTRIBUTION WIDTH 22.2 % (9.0-15.0)
[2020-10-21 07:04] LABS: CALCIUM 7.3 mg/dL (8.4-11.0); CREATININE 1.3 mg/dL (0.55-1.30)
--- NOTE | 2020-10-21 07:08 | NUR ---
Closing notes Patient is resting in bed, no signs of distress noted. Breathing even and unlabored on room air. RIJ dressing in place. No additional bleeding noted. LUCILLE PICC in place. No signs of infiltration noted. All needs met throughout the shift. Call light with the patient. Safety precautions in place. Will endorse care to day shift RN.
[2020-10-21 07:19] LABS: INR 1.7 (0.8-1.2); PROTHROMBIN TIME 17.2 SECS (9.5-12.5)
[2020-10-21 07:33] LABS: POTASSIUM 2.4 mmol/L (3.5-5.1)
--- NOTE | 2020-10-21 08:39 | NUR ---
Called and left message to Dr. Anurag duggan: Critical K+=2.4. Awaiting response. Addendum: 10/21/20 at 0841 by [employer] officer Called and left message to Dr. Aunrag duggan: Critical K+=2.4. Pt also has active bleeding at PICC site to LUCILLE and bleeding to right neck. Awaiting response.
[2020-10-21 08:45] LABS: PLATELET COUNT (AUTO) 34 K/uL (130-430)
--- NOTE | 2020-10-21 08:58 | NUR ---
Left message to Dr. Dias r: pt's critical platelet level=34 and active bleeding from LUCILLE PICC and neck. Awaiting response.
[2020-10-21] MEDS ORDERED: KCL 40 mEq in 100 mL (PREMIX) 100 ML IV ONE (09:00)
[2020-10-21] MEDS: lisinopriL 20 MG TABLET PO SCH (09:00)
[2020-10-21] MEDS: POTASSIUM CHLORIDE 20 MEQ TAB.PRT.SR PO SCH (09:26)
[2020-10-21] MEDS: ASCORBIC ACID 500 MG TABLET PO SCH ×2 (09:26→20:48)
[2020-10-21] MEDS: FOLIC ACID 1 MG TABLET PO SCH (09:27)
[2020-10-21] MEDS: LORATADINE 10 MG TABLET PO SCH (09:27)
[2020-10-21] MEDS: FUROSEMIDE 40 MG TABLET PO SCH (09:27)
[2020-10-21] MEDS: FERROUS SULFATE 325 MG TABLET.DR PO SCH (09:27)
[2020-10-21] MEDS ORDERED: POTASSIUM CHLORIDE 20 MEQ TAB.PRT.SR PO ONE ×3 (09:30→17:45)
--- NOTE | 2020-10-21 10:35 | NUR ---
Dietitian Recommendations *Recommend continue Mechanical Soft, 2g Na Diet *Recommend add Glucerna BID to provide additional 440 kcal 20 g protein to promote PO intake and healing. *Encourage increase PO intake during meal times. Please see Nutrition Assessment for details. WAQAR BILLINGSLEY
[2020-10-21] MEDS ORDERED: POTASSIUM CHLORIDE 20 MEQ TAB.PRT.SR ONE (10:49)
[2020-10-21] MEDS: levoFLOXacin 500 MG TABLET PO SCH (10:52)
[2020-10-21] MEDS: metOLazone 5 MG TABLET PO SCH ×2 (10:53→20:49)
[2020-10-21] MEDS ORDERED: DEXAMETHASONE SOD PHOSPHATE 10 MG/ML VIAL IVP ONE (11:00)
[2020-10-21] MEDS: DEXAMETHASONE SOD PHOSPHATE 10 MG/ML VIAL IVP SCH ×2 (15:38→19:01)
[2020-10-21 16:08] LABS: BASOPHILS % (AUTO) 0.2 % (0.0-2.0); HEMATOCRIT 24.1 % (36-48); HEMOGLOBIN 8.4 g/dL (12.0-16.0); LYMPHOCYTES # (AUTO) 0.3 K/uL (1.0-5.5); LYMPHOCYTES % (AUTO) 3.8 % (20.5-51.5); MEAN CORPUSCULAR HEMOGLOBIN 32 pg (27-31); MEAN CORPUSCULAR HGB CONC 35 % (32-36); MEAN CORPUSCULAR VOLUME 92 fL (79.0-98.0); MONOCYTES # (AUTO) 0.5 K/uL (0.0-1.0); MONOCYTES % (AUTO) 7.4 % (1.7-9.3); NEUTROPHILS # (AUTO) 6.2 K/uL (1.8-7.7); NEUTROPHILS % (AUTO) 88.6 % (40.0-70.0); RED BLOOD CELL COUNT(AUTO) 2.62 MIL/uL (4.2-6.2); RED CELL DISTRIBUTION WIDTH 22.9 % (9.0-15.0)
[2020-10-21 16:29] LABS: CALCIUM 7.3 mg/dL (8.4-11.0); CREATININE 1.23 mg/dL (0.55-1.30)
[2020-10-21 16:47] LABS: POTASSIUM 2.8 mmol/L (3.5-5.1)
[2020-10-21 16:53] LABS: PLATELET COUNT (AUTO) 36 K/uL (130-430)
--- NOTE | 2020-10-21 17:24 | NUR ---
Notifed Dr. Osborn re: Pt's potassium still critically low=2.8. New orders received. Will carry out.
--- NOTE | 2020-10-21 19:00 | NUR ---
OPENING NOTES PATIENT IS RESTING, NO SIGNS OF RESPIRATORY DISTRESS. IV SITE PATENT, TO LUCILLE PICC. DRESSING NOTED ON RIGHT NECK, NO ACTIVE BLEEDING NOTED AT THIS TIME. RECEIVED REPORT THAT FIRST UNIT OF PLATELETS AND ONE UNIT OF PRBC WERE PROVIDED TO PATIENT. CALL LIGHT WITHIN REACH, BED ALARM REFUSED AFTER PATIENT DEMONSTRATED PROPER USAGE OF CALL LIGHT. BED AT LOWEST POSITION. WILL CONTINUE TO MONITOR.
[2020-10-21] MEDS: ATORVASTATIN 20 MG TABLET PO SCH (20:48)
[2020-10-22 00:01] VITALS: BP_SYST 106
[2020-10-22] MEDS: DEXAMETHASONE SOD PHOSPHATE 10 MG/ML VIAL IVP SCH ×4 (00:05→17:21)
--- NOTE | 2020-10-22 00:20 | NUR ---
FFP INITIATION: Consent signed per agreeing to administration of blood products. Blood has been type and crossmatched. Blood sent from blood bank. Information on unit of blood product checked against patient wristband at bedside by two nurses. All information matches. Patient or responsible constitution party informed of potential complications associated with blood transfusion. Informed of possible transfusion reaction symptoms. Aware of need to notify nurse at once of itching, shortness of breath, flushing, feeling of impending doom, or other symptoms not previously present. Vital signs taken within 15 minutes prior to initiation of transfusion. RN will remain with patient for first 15 minutes of transfusion at which time vital signs will be re-assessed.
--- NOTE | 2020-10-22 04:34 | NUR ---
PATIENT SLEEPING, NO DISTRESS NOTED. CALL LIGHT WITHIN REACH. WILL CONTINUE TO MONITOR.
[2020-10-22 07:03] LABS: BASOPHILS % (AUTO) 0.1 % (0.0-2.0); HEMOGLOBIN 7.4 g/dL (12.0-16.0); LYMPHOCYTES # (AUTO) 0.3 K/uL (1.0-5.5); LYMPHOCYTES % (AUTO) 4.8 % (20.5-51.5); MEAN CORPUSCULAR HEMOGLOBIN 33 pg (27-31); MEAN CORPUSCULAR HGB CONC 36 % (32-36); MEAN CORPUSCULAR VOLUME 92 fL (79.0-98.0); MONOCYTES # (AUTO) 0.4 K/uL (0.0-1.0); MONOCYTES % (AUTO) 6.8 % (1.7-9.3); NEUTROPHILS # (AUTO) 5.8 K/uL (1.8-7.7); NEUTROPHILS % (AUTO) 88.3 % (40.0-70.0); RED BLOOD CELL COUNT(AUTO) 2.29 MIL/uL (4.2-6.2); RED CELL DISTRIBUTION WIDTH 22.3 % (9.0-15.0); WHITE BLOOD COUNT (AUTO) 6.5 K/uL (4.8-10.8)
--- NOTE | 2020-10-22 07:24 | NUR ---
CLOSING NOTES PATIENT IS RESTING, NO SIGNS OF RESPIRATORY DISTRESS. IV SITE PATENT, LUCILLE PICC, DRESSINGS C/D/I, SALINE LOCK. DRESSING NOTED ON RIGHT NECK, NO ACTIVE BLEEDING NOTED. CALL LIGHT WITHIN REACH, BED ALARM REFUSED AFTER PATIENT DEMONSTRATED PROPER USAGE OF CALL LIGHT. BED AT LOWEST POSITION. ALL NEEDS MET THROUGHOUT SHIFT. WILL ENDORSE CARE TO ONCOMING SHIFT.
[2020-10-22 07:27] LABS: PLATELET COUNT (AUTO) 44 K/uL (130-430)
--- NOTE | 2020-10-22 07:38 | NUR ---
ONCO/FLAG SIGNALER, DR FELICIANO WAS PAGED RE: CRITICAL PLATELET LEVEL. SPOKE TO EMMANUELLE.
--- NOTE | 2020-10-22 07:56 | NUR ---
ATTENDING MD DR QUEEN WAS CALLED DIRECTLY, RE: CRITICAL K LEVEL, WITH OTHER ABNORMAL LABS.
[2020-10-22 08:00] VITALS: BP_SYST 107
[2020-10-22] MEDS ORDERED: POTASSIUM CHLORIDE 40 MEQ, LIDOCAINE JECT 2% PF 100 MG 50 MG in NS 250 ML IV ONE (08:00)
[2020-10-22] MEDS ORDERED: MAGNESIUM SULFATE IN WATER 100 ML IV ONE ×2 (08:00→09:15)
[2020-10-22] MEDS ORDERED: POTASSIUM CHLORIDE 20 MEQ TAB.PRT.SR PO ONE (08:00)
--- NOTE | 2020-10-22 08:05 | NUR ---
HIGH ALERT NOTE: Called [phone] back at identified within the medical roster to verify physician authenticity.
[2020-10-22] MEDS: LORATADINE 10 MG TABLET PO SCH (08:33)
[2020-10-22] MEDS: ASCORBIC ACID 500 MG TABLET PO SCH ×2 (08:33→21:43)
[2020-10-22] MEDS: lisinopriL 20 MG TABLET PO SCH (08:34)
[2020-10-22] MEDS: FUROSEMIDE 40 MG TABLET PO SCH (08:35)
[2020-10-22] MEDS: FERROUS SULFATE 325 MG TABLET.DR PO SCH (08:35)
[2020-10-22] MEDS: FOLIC ACID 1 MG TABLET PO SCH (08:36)
[2020-10-22] MEDS: POTASSIUM CHLORIDE 20 MEQ TAB.PRT.SR PO SCH (08:36)
[2020-10-22] MEDS: metOLazone 5 MG TABLET PO SCH ×2 (08:39→21:43)
[2020-10-22] MEDS: levoFLOXacin 500 MG TABLET PO SCH (08:53)
[2020-10-22 09:34] LABS: INR 1.7 (0.8-1.2); PROTHROMBIN TIME 17.2 SECS (9.5-12.5)
[2020-10-22 12:44] VITALS: BP_SYST 109
--- NOTE | 2020-10-22 13:57 | NUR ---
alert, oriented, no complaint. PLTS trending up today 44. Ernie/onco, came to see the patient, no order for FFP. electrolytes imbalances, K+ 2.8, got replaced with 40krider, ivpb over 4hrs. Mg+ 1.2, got replaced with 4gm MgSo4 ivpb, over 4hrs.
--- NOTE | 2020-10-22 14:19 | NUR ---
Discharge Planning: DCP faxed pt referral to [facility] (f [phone] p [phone]) DCP to follow up
--- NOTE | 2020-10-22 14:49 | NUR ---
Dc Barriers: pt has low Mg, low K, low platelet, elevated INR : needed replacement today. DCP eval order requested to dr. Osborn.
--- NOTE | 2020-10-22 16:03 | NUR ---
per catering convention services manager 's notes, dr Dias, NO NEED for platelets tx today Right side of neck, IJ catheter out, now all it left is a hole, still bleedy. Old dressing saturated with mellisa and old blood, the site with NS, then petroleum dressing applied. PT/INR, PT still elevated today, so far no tx written yet.
[2020-10-22 16:14] VITALS: BP_SYST 109
--- NOTE | 2020-10-22 16:24 | NUR ---
SS notes: PRODUCT DEVELOPMENT was referred by CM stating patient is asking for disability forms. PRODUCT DEVELOPMENT met with patient at bedside who stated she has been unemployed for one month and is now looking into filing disability; forms provided.
--- NOTE | 2020-10-22 19:00 | NUR ---
OPENING NOTES PATIENT IS RESTING, NO SIGNS OF RESPIRATORY DISTRESS. IV SITE PATENT, TO LUCILLE PICC, DRESSINGS C/D/I, SALINE LOCK. NO ACTIVE BLEEDING AT THE RIGHT NECK NOTED AT THIS TIME. RECEIVED REPORT THAT DR. FELICIANO CAME AND NO NEW ORDERS RECEIVED. CALL LIGHT WITHIN REACH, BED ALARM REFUSED AFTER PATIENT DEMONSTRATED PROPER USAGE OF CALL LIGHT. BED AT LOWEST POSITION. WILL CONTINUE TO MONITOR.
--- NOTE | 2020-10-22 21:00 | NUR ---
TRANSITION OF CARE TO [facility]. PROVIDED SBAR.
[2020-10-22 21:10] VITALS: BP_SYST 104
--- NOTE | 2020-10-22 21:10 | NUR ---
assumption of care Received SBAR report from [facility] [employer]. Received patient awake, resting in bed, no distress and non labored breathing on room air. PIIC to LUCILLE is presently SL. Bed is locked in lowest position and bed alarm on. Call light w/in reach. Updated board and reviewed plan of care.
[2020-10-22] MEDS: ATORVASTATIN 20 MG TABLET PO SCH (21:43)
--- NOTE | 2020-10-22 21:44 | NUR ---
Meds Due meds given. Patient swallowed tablets. Reviewed side effects and she verbalized understanding. Provided pitcher of water. She is on cell phone talking with family, no distress. Call light w/in reach.
--- NOTE | 2020-10-22 23:59 | NUR ---
BT INITIATION: Consent signed per agreeing to administration of blood. Blood has been type and crossmatched. Received blood from blood bank. Information on unit of blood checked against patient wristband at bedside by two nurses. All information matches. Patient or responsible constitution party informed of potential complications associated with blood transfusion. Informed of possible transfusion reaction symptoms. Aware of need to notify nurse at once of itching, shortness of breath, flushing, feeling of impending doom, or other symptoms not previously present. Vital signs taken within 5 minutes prior to initiation of transfusion. RN will remain with patient for first 15 minutes of transfusion at which time vital signs will be re-assessed.
[2020-10-23 00:50] VITALS: BP_SYST 111
[2020-10-23] MEDS: DEXAMETHASONE SOD PHOSPHATE 10 MG/ML VIAL IVP SCH ×4 (00:55→18:52)
--- NOTE | 2020-10-23 03:00 | NUR ---
Blood transfusion complete Transfusion completed. Patient is awake, alert and denies any symptoms of low back pain, SOB, itching or any other symptom. Will continue to monitor. Call light w/in reach.
--- NOTE | 2020-10-23 06:50 | NUR ---
closing note Patient assisted w/ bed cheek, voided ramiro ua. Dressing change to exit site of RIJ done. Needs met throughout shift, safety precautions maintained, will endorse to day shift nurse.
[2020-10-23 07:48] LABS: BASOPHILS % (AUTO) 0.2 % (0.0-2.0); HEMATOCRIT 25.3 % (36-48); HEMOGLOBIN 8.8 g/dL (12.0-16.0); LYMPHOCYTES # (AUTO) 0.2 K/uL (1.0-5.5); LYMPHOCYTES % (AUTO) 4.1 % (20.5-51.5); MEAN CORPUSCULAR HEMOGLOBIN 32 pg (27-31); MEAN CORPUSCULAR HGB CONC 35 % (32-36); MEAN CORPUSCULAR VOLUME 92 fL (79.0-98.0); MONOCYTES # (AUTO) 0.6 K/uL (0.0-1.0); NEUTROPHILS # (AUTO) 4.8 K/uL (1.8-7.7); NEUTROPHILS % (AUTO) 85.7 % (40.0-70.0); PLATELET COUNT (AUTO) 35 K/uL (130-430); RED BLOOD CELL COUNT(AUTO) 2.74 MIL/uL (4.2-6.2); RED CELL DISTRIBUTION WIDTH 20.7 % (9.0-15.0); WHITE BLOOD COUNT (AUTO) 5.6 K/uL (4.8-10.8)
[2020-10-23 08:04] VITALS: BP_SYST 137
--- NOTE | 2020-10-23 08:04 | NUR ---
INITIAL ROUNDS Received pt AAOx4, no s/s resp distress, no c/o pain or discomfort. Plan of care for the day reviewed with pt-pt verbalized her understanding. Noted LUCILLE PICC line with dressing dry and intact, sl. Pain management, disease process, skin and safety discussed-teach back done. Call light within reach.
[2020-10-23 10:31] VITALS: BP_SYST 137
[2020-10-23] MEDS: metOLazone 5 MG TABLET PO SCH ×2 (10:47→20:44)
[2020-10-23] MEDS: LORATADINE 10 MG TABLET PO SCH (10:48)
[2020-10-23] MEDS: lisinopriL 20 MG TABLET PO SCH (10:48)
[2020-10-23] MEDS: FOLIC ACID 1 MG TABLET PO SCH (10:48)
[2020-10-23] MEDS: FERROUS SULFATE 325 MG TABLET.DR PO SCH (10:48)
[2020-10-23] MEDS: ASCORBIC ACID 500 MG TABLET PO SCH ×2 (10:48→20:36)
[2020-10-23] MEDS: FUROSEMIDE 40 MG TABLET PO SCH (10:49)
[2020-10-23] MEDS: POTASSIUM CHLORIDE 20 MEQ TAB.PRT.SR PO SCH (10:49)
[2020-10-23] MEDS: levoFLOXacin 500 MG TABLET PO SCH (10:54)
[2020-10-23 11:24] VITALS: BP_SYST 124
[2020-10-23 15:24] VITALS: BP_SYST 136
--- NOTE | 2020-10-23 15:26 | NUR ---
Discharge Planning: DCP followed up with pt referral to [facility] (f [phone] p [phone]) pt will go to [facility], pending DC order. DCP arranged transportation on [place] [facility] with [facility] ([phone]), DCP made nurse aware and took patient packet to nurse station.
--- NOTE | 2020-10-23 19:15 | NUR ---
CLOSING NOTE Pt resting quietly in bed with no s/s resp distress, no c/o pain or discomfort. Endorsed to next shift nurse regarding DCP. Needs met, call light within reach.
[2020-10-23 19:45] VITALS: BP_SYST 120
--- NOTE | 2020-10-23 19:45 | NUR ---
INITIAL NOTE AT INITIAL ASSESSMENT, PATIENT IS RESTING IN BED, STABLE, NO SIGNS OF RESPIRATORY DISTRESS. PATIENT VERBALIZES NO PAIN. PLAN OF CARE FOR THE EVENING IS COMMUNICATED WITH THE PATIENT. PATIENT DEMONSTRATES CORRECT USAGE OF CALL LIGHT AT THIS TIME. BED IS LOCKED, ALARMED, AND AT THE LOWEST LEVEL. FALL SAFETY EDUCATION PROVIDED. FALL, SAFETY, AND RESPIRATORY PRECAUTIONS WILL BE TAKEN THROUGHOUT THE SHIFT.
[2020-10-23] MEDS: ATORVASTATIN 20 MG TABLET PO SCH (20:36)
--- NOTE | 2020-10-23 21:45 | NUR ---
MED PASS NOTE SCHEDULED MEDICATIONS GIVEN AT THIS TIME, PATIENT TOLERATED WELL. CALL LIGHT IS PLACED WITHIN REACH. BED IS LOCKED, ALARMED, AND AT THE LOWEST LEVEL.
--- NOTE | 2020-10-23 22:30 | NUR ---
HYGIENE CARE NOTE PATIENT ASSISTED TO VOID WITH BEDPAN. HYGIENE CARE IS PROVIDED AT THIS TIME, FRESH LINENS PROVIDED, AND PATIENT IS REPOSITIONED FOR COMFORT. PATIENT TOLERATED WELL. CALL LIGHT PLACED WITHIN REACH. BED IS LOCKED, ALARMED, AND AT THE LOWEST LEVEL.
--- NOTE | 2020-10-23 22:43 | NUR ---
PAGED DR. BERNICE QUEEN PAGED AT THIS TIME PER CASE MANAGEMENT TO FINALIZE D/C PLAN AND D/C ORDERS. NO ANSWER, WILL PAGE AGAIN LATER.
[2020-10-24] VITALS: BP_SYST 116
--- NOTE | 2020-10-24 | NUR ---
NOTE PATIENT IS SLEEPING, STABLE, NO SIGNS OF RESPIRATORY DISTRESS. CALL LIGHT IS WITHIN REACH. BED IS LOCKED, ALARMED, AND AT THE LOWEST LEVEL.
[2020-10-24] MEDS: DEXAMETHASONE SOD PHOSPHATE 10 MG/ML VIAL IVP SCH ×3 (00:02→10:50)
[2020-10-24] MEDS: MORPHINE 2 MG/ML INJ. SYRINGE IVP PRN (00:07)
--- NOTE | 2020-10-24 02:00 | NUR ---
NOTE PATIENT IS SLEEPING, STABLE, NO SIGNS OF RESPIRATORY DISTRESS. CALL LIGHT IS WITHIN REACH. BED IS LOCKED, ALARMED, AND AT THE LOWEST LEVEL.
[2020-10-24 02:07] VITALS: BP_SYST 120
--- NOTE | 2020-10-24 03:05 | NUR ---
NOTE PATIENT IS SLEEPING, STABLE, NO SIGNS OF RESPIRATORY DISTRESS. CALL LIGHT IS WITHIN REACH. BED IS LOCKED, ALARMED, AND AT THE LOWEST LEVEL.
--- NOTE | 2020-10-24 05:05 | NUR ---
NOTE PATIENT IS SLEEPING, STABLE, NO SIGNS OF RESPIRATORY DISTRESS. CALL LIGHT IS WITHIN REACH. BED IS LOCKED, ALARMED, AND AT THE LOWEST LEVEL.
--- NOTE | 2020-10-24 06:45 | NUR ---
CLOSING NOTE PATIENT SLEPT WELL THROUGHOUT THE SHIFT, NO SHORTNESS OF BREATH NOTED. AT THIS TIME, PATIENT IS RESTING IN BED, STABLE, NO SIGNS OF RESPIRATORY DISTRESS. CALL LIGHT IS WITHIN REACH. BED IS LOCKED, ALARMED, AND AT THE LOWEST LEVEL. FALL, SAFETY, AND RESPIRATORY PRECAUTIONS HAVE BEEN TAKEN THROUGHOUT THE SHIFT. WILL CONTINUE TO MONITOR UNTIL SHIFT REPORT IS GIVEN AT BEDSIDE TO AM NURSE.
[2020-10-24 08:00] VITALS: BP_SYST 130
[2020-10-24] MEDS: LORATADINE 10 MG TABLET PO SCH (08:55)
[2020-10-24] MEDS: ASCORBIC ACID 500 MG TABLET PO SCH (08:55)
[2020-10-24] MEDS: FOLIC ACID 1 MG TABLET PO SCH (08:55)
[2020-10-24] MEDS: FERROUS SULFATE 325 MG TABLET.DR PO SCH (08:55)
[2020-10-24] MEDS: lisinopriL 20 MG TABLET PO SCH (08:56)
[2020-10-24] MEDS: FUROSEMIDE 40 MG TABLET PO SCH (08:56)
[2020-10-24] MEDS: POTASSIUM CHLORIDE 20 MEQ TAB.PRT.SR PO SCH (08:56)
[2020-10-24] MEDS: metOLazone 5 MG TABLET PO SCH (08:59)
[2020-10-24 09:30] LABS: CALCIUM 8.4 mg/dL (8.4-11.0); CREATININE 1.19 mg/dL (0.55-1.30); POTASSIUM 3.2 mmol/L (3.5-5.1)
[2020-10-24 09:36] LABS: ALBUMIN 2.1 g/dL (3.4-4.8); TOTAL BILIRUBIN 5.3 mg/dL (0.0-1.0)
--- NOTE | 2020-10-24 10:09 | NUR ---
Case mgt: I called [facility]--s/w Vi on their nursing station at [phone]--Vi confirmed that rm#[id number] is still available and to call her with report--[facility] is on will-call at [phone]--nurse Gardner is calling Dr. Osborn for lab/platelet result of 35 and for possible dc order--Nurse Carlos A aware also- RN
[2020-10-24] MEDS ORDERED: POTASSIUM CHLORIDE 20 MEQ TAB.PRT.SR PO ONE (10:30)
--- NOTE | 2020-10-24 10:35 | NUR ---
[facility] , THE ONCALL TRANSPORT ARRANGED BY RUBBER FLAP CUTTER, REFUSED TO TAKE PT TO THE ACCEPTING FACILITY, [facility].
[2020-10-24 10:37] VITALS: BP_SYST 130
--- NOTE | 2020-10-24 10:53 | NUR ---
Case Mgt: Per bellows charger assembler Chone, [facility] said they are booked up completely today and can't transport pt today- I called [facility] at [phone] to check other ambulance companies, but unable to reach live person-I called Yamileth at [facility] [phone] and left message to call me. I called [facility] ambulance, S, and set up transport to [facility] with Darian for rm#[id number]--He only has transport avail for 30min pickup--nurse Kendra made aware--pt has PICC line--no isolation. EULALIA HARDY
--- NOTE | 2020-10-24 11:10 | NUR ---
report given to Jaydon at [facility] unit, , prior to discharge, extra 40meq K dur given. LUCILLE Picc, ready to pull out per physician's order, patient, adamantly refused to let it go. " I am in and out so much , the hospital, I dont care what the dr said , leave it there, please" ready to leave any time when ambulance arrives.. Patient is alert, oriented, and appropriate, no complaint of pain.
== END 2020-10-24 11:50 | DRG 206 ==
LOC: SMU 20:00
PROVIDERS: ADMIT Internal Medicine; ATTEND Internal Medicine
PROC: 30233N1 Transfusion of Nonautologous Red Blood Cells into Peripheral Vein, Percutaneous Approach (ICD-10-PCS; 2020-10-17)
PROC: 30233K1 Transfusion of Nonautologous Frozen Plasma into Peripheral Vein, Percutaneous Approach (ICD-10-PCS; principal; 2020-10-21)
PROC: 30233R1 Transfusion of Nonautologous Platelets into Peripheral Vein, Percutaneous Approach (ICD-10-PCS; 2020-10-21)
DX: T82.838A Hemorrhage due to vascular prosthetic devices, implants and grafts, initial encounter (principal); N39.0 Urinary tract infection, site not specified; D69.6 Thrombocytopenia, unspecified; E11.22 Type 2 diabetes mellitus with diabetic chronic kidney disease; N18.5 Chronic kidney disease, stage 5; K21.9 Gastro-esophageal reflux disease without esophagitis; K76.9 Liver disease, unspecified; K70.30 Alcoholic cirrhosis of liver without ascites; D62 Acute posthemorrhagic anemia; D68.9 Coagulation defect, unspecified; E87.6 Hypokalemia; Y84.1 Kidney dialysis as the cause of abnormal reaction of the patient, or of later complication, without mention of misadventure at the time of the procedure; Z79.899 Other long term (current) drug therapy; Z79.82 Long term (current) use of aspirin; Z88.2 Allergy status to sulfonamides; Y92.89 Other specified places as the place of occurrence of the external cause; Z20.828 Contact with and (suspected) exposure to other viral communicable diseases; N17.0 Acute kidney failure with tubular necrosis; E43 Unspecified severe protein-calorie malnutrition; R64 Cachexia
CPT/HCPCS: 36415; 71045; 76700-TC; 80048; 80053; 81003; 82272; 82607; 82728; 82746; 83540-TC; 83550-TC; 83735-TC; 85025; 85044-TC; 85610-TC; 85730-TC; 86886; 86900; 86901; 86920; 87081; 94640; J1100; J2270; J2930; J3430; J3475; J3480; J7050; J7613; P9021; P9034; P9059